=== PATIENT | female | born 1945 | race Caucasian/White ===

== ENCOUNTER 2016-07-21 10:39 | Emergency (ER) | payer OTHER ==
[~2016-07-21] VITALS: Ht 160 cm; Wt 92.1 kg
[~2016-07-21 10:39] MED LIST: AMOXICILLIN875 MG PO; AVAPRO 150 MG150 MG PO; CYCLOBENZAPRINE5 MG PO; EVISTA PO; HYDROCODONE-AP1 EAC6 PO; LIPITOR 20 MG T20 M1 PO; NORCO 5-325 TA1 EACH PO; NORFLEX100 MG PO; PERCOCET 5-3251 EACH PO; PERCOCET PO; PREDNISONE50 MG PO; PROMETHAZINE-C120 ML PO; PROTONIX 20 MG20 MG PO; TUMS PO; VENTOLIN HFA 1818 GM INH; XANAX 0.5 MG0.5 MG
[2016-07-21] MEDS ORDERED: HYDROCODONE-AP1 EAC6 PO (11:05)
[2016-07-21 11:26] VITALS: BP 153/89
== END 2016-07-21 11:27 | disposition home or self-care (01) ==
LOC: ER 10:39
DX: T14.8 Other injury of unspecified body region (principal); J44.9 Chronic obstructive pulmonary disease, unspecified; I10 Essential (primary) hypertension; X58.XXXA Exposure to other specified factors, initial encounter; Y93.89 Activity, other specified; Y92.89 Other specified places as the place of occurrence of the external cause; Y99.9 Unspecified external cause status

== ENCOUNTER 2018-03-07 14:42 | Emergency (ER) | payer MEDICARE ==
[~2018-03-07] VITALS: Ht 160 cm; Wt 92.5 kg
[2018-03-07 14:44] VITALS: BP 223/97
[2018-03-07] MEDS ORDERED: CARVEDILOL12.5 MG (14:54)
[2018-03-07] MEDS ORDERED: ZANAFLEX2 MG PO (15:02)
== END 2018-03-07 15:19 | disposition home or self-care (01) ==
LOC: ER 14:42
DX: M62.830 Muscle spasm of back (principal); I10 Essential (primary) hypertension; J44.9 Chronic obstructive pulmonary disease, unspecified